=== PATIENT | male | born 1950 | race Caucasian/White ===

== ENCOUNTER 2019-02-17 12:46 | Inpatient (IN) | payer OTHER ==
[~2019-02-17] VITALS: Ht 179.1 cm; Wt 86.9 kg
[2019-02-28 15:11] VITALS: BP 128/63
[2019-02-28 15:24] LABS: APPEARANCE,URINE Clear (CLEAR); BILIRUBIN,URINE Negative (NEGATIVE); COLOR,URINE Yellow (YELLOW); GLUCOSE, URINE (UA) Negative (NEGATIVE); KETONES,URINE Negative (NEGATIVE); LEUKOCYTE ESTERASE ,URINE Negative (NEGATIVE); NITRATE,URINE Negative (NEGATIVE); OCCULT BLOOD,URINE Negative (NEGATIVE); PH,URINE 6.5 (5.0-8.0); PROTEIN,URINE Negative (NEGATIVE)
[2019-02-28] MEDS ORDERED: SERT100T12 PO (16:47)
[2019-02-28] MEDS ORDERED: ATOR40TA71 PO (16:47)
[2019-02-28] MEDS ORDERED: POTA10TA19 PO (16:47)
[2019-02-28] MEDS ORDERED: ALEVE PO (16:47)
[2019-03-01] VITALS (24 sets, daily range): BP systolic 128–153; BP diastolic 58–78
[2019-03-01] MEDS ORDERED: METOCLOPRAMIDE 10 MG/2 ML VIAL ONE (08:23)
[2019-03-01] MEDS ORDERED: ACETAMINOPHEN EXTRA STRENGTH 500 MG TABLET ONE (08:23)
[2019-03-01] MEDS ORDERED: KETOROLAC TROMETHAMINE 15MG/ML ONE (08:24)
[2019-03-01] MEDS ORDERED: CELECOXIB 200 MG CAP ONE (08:24)
[2019-03-01] MEDS ORDERED: OXYCODONE HCL 10 MG TAB.SR.12H PO ONE (08:24)
[2019-03-01] MEDS ORDERED: LACTATED RINGERS 1000ML 1,000 ML IV ONE (08:26)
[2019-03-01] MEDS ORDERED: GLYCOPYRROLATE 1 MG/5 ML SYRINGE ONE (08:54)
[2019-03-01] MEDS ORDERED: PROPOFOL 10 MG/ML 20ML VIAL IV ONE (08:55)
[2019-03-01] MEDS ORDERED: NEOSTIGMINE 5MG/5ML SYR IV ONE (08:55)
[2019-03-01] MEDS ORDERED: MIDAZOLAM HCL 1 MG/ML 2ML VIAL ONE (08:55)
[2019-03-01] MEDS ORDERED: FENTANYL CITRATE PF 50 MCG/1 ML 2ML VIAL ONE (08:55)
[2019-03-01] MEDS ORDERED: ROCURONIUM 10MG/1ML SYR 10 MG/ML ML ONE ×2 (08:55→11:11)
[2019-03-01] MEDS ORDERED: LIDOCAINE PF 2% 5ML ABBOJECT ONE (08:57)
[2019-03-01] MEDS ORDERED: CEFAZOLIN SODIUM 1 GM VIAL ONE (09:07)
[2019-03-01] MEDS: CEFAZOLIN SODIUM 1 GM VIAL ONE ×2 (09:29→14:00)
[2019-03-01] MEDS ORDERED: ROPIVACAINE 0.5% 5MG/ML 30ML IJ ONE (09:30)
[2019-03-01] MEDS: TRANEXAMIC ACID 1000MG/10ML IV ONE ×2 (10:10→14:30)
[2019-03-01] MEDS ORDERED: EPHEDRINE SULFATE 50 MG/ML AMPULE ONE (10:37)
[2019-03-01] MEDS ORDERED: DEXAMETHASONE SOD PHOSPHATE 10MG/ML 1ML VIAL ONE (10:48)
[2019-03-01] MEDS ORDERED: CALCIUM CARBONATE 500 MG TABLET PO PRN (14:15)
[2019-03-01] MEDS ORDERED: FE FUMARATE/FA/MV, MIN COMB#15 1 TAB PO PRN (14:15)
[2019-03-01] MEDS ORDERED: TEMAZEPAM 15 MG CAPSULE PO PRN (14:15)
[2019-03-01] MEDS ORDERED: POTASSIUM CHLORIDE 20 MEQ ERTAB PO PRN (14:15)
[2019-03-01] MEDS ORDERED: POTASSIUM CHLORIDE 10% ELIXIR 20 MEQ/15 ML UDCUP PO PRN (14:15)
[2019-03-01] MEDS ORDERED: POTASSIUM CHLORIDE 20MEQ/100ML 100 ML IV PRN (14:15)
[2019-03-01] MEDS ORDERED: TRAMADOL HCL 50 MG TABLET PO PRN (14:15)
[2019-03-01] MEDS ORDERED: ONDANSETRON HCL 4 MG/2 ML VIAL IVP PRN (14:15)
[2019-03-01] MEDS: ACETAMINOPHEN EXTRA STRENGTH 500 MG TABLET PO SCH ×2 (14:15→20:23)
[2019-03-01] MEDS ORDERED: DiphenhydrAMINE HCL 50 MG/ML VIAL IVP PRN (14:15)
[2019-03-01] MEDS ORDERED: OXYCODONE HCL 5 MG TAB PO PRN (14:15)
[2019-03-01] MEDS ORDERED: LIDOCAINE HCL-MPF 1% 2ML VIAL IVP PRN (14:15)
[2019-03-01] MEDS: SODIUM CHLORIDE 0.9% 1000ML 1,000 ML IV SCH (15:20)
--- NOTE | 2019-03-01 15:20 | NUR ---
REC'D PT TO ROOM 431 AWAKE, ALERT, IN STABLE CONDITION. S/P LEFT REVERSE TOTAL SHOULDER, DRESSING CLEAN, DRY, AND INTACT. HEMOVAC IN PLACE. SLING IN PLACE. ARRIVED TO ROOM SHORTLY AFTER. CALL SCHULER AND BEDSIDE TABLE WITHIN PT'S EASY REACH.
--- NOTE | 2019-03-01 16:05 | NUR ---
DCP CM met with pt discussed dc plans. Pt is independent prior to surgery, lives at home with spouse. denies any equipments. Pt feels safe to go back home, still drives, spouse able to assist with transportation and needs as necessary. Pt agreeable to home w/HH through [facility], PANDA signed for [facility] assigned Home Health. DC plan to home w/HH. CM to cont to follow up. Addendum: 03/01/19 at 1606 by DANIA SANTOYO LVN CM Amended: Links added.
[2019-03-01] MEDS ORDERED: ACET-66 PO (16:28)
--- NOTE | 2019-03-01 17:06 | NUR ---
CM Note: [facility] Spoke to Sameera Sal, received clinicals, will work on pt. Pt pending approval and assigned home health. Primary nurse aware. CM to cont to follow up.
[2019-03-01] MEDS: CEFAZOLIN SODIUM 1 GM VIAL IVP SCH (18:35)
[2019-03-01] MEDS: PREGABALIN 25 MG CAP PO SCH (20:21)
[2019-03-01] MEDS: ASPIRIN 325 MG TABLET PO SCH (20:21)
[2019-03-01] MEDS: SERTRALINE HCL 50 MG TABLET PO SCH (20:22)
[2019-03-01] MEDS: POTASSIUM CHLORIDE 10 MEQ/TAB.SA PO SCH (20:22)
[2019-03-01] MEDS: ATORVASTATIN CALCIUM 20 MG TABLET PO SCH (20:23)
[2019-03-01] MEDS: CELECOXIB 200 MG CAP PO SCH (20:23)
[2019-03-01] MEDS: FAMOTIDINE 20MG TAB 20 MG TAB PO SCH (20:23)
[2019-03-01] MEDS ORDERED: SERTRALINE HCL PO SCH (21:00)
[2019-03-01] MEDS ORDERED: POTASSIUM CITRATE PO SCH (21:00)
[2019-03-01] MEDS ORDERED: ATORVASTATIN CALCIUM PO SCH (21:00)
[2019-03-01] MEDS: KETOROLAC TROMETHAMINE 15MG/ML IV PRN (22:09)
[2019-03-02] MEDS: SODIUM CHLORIDE 0.9% 1000ML 1,000 ML IV SCH ×2 (00:04→10:04)
[2019-03-02] MEDS: OXYCODONE HCL 5 MG TAB PO PRN ×3 (00:56→20:12)
[2019-03-02] MEDS: CEFAZOLIN SODIUM 1 GM VIAL IVP SCH (03:38)
[2019-03-02] MEDS: KETOROLAC TROMETHAMINE 15MG/ML IV PRN (03:44)
[2019-03-02] MEDS: ACETAMINOPHEN EXTRA STRENGTH 500 MG TABLET PO SCH ×3 (03:44→22:34)
[2019-03-02 04:00] VITALS: BP_SYST 135; BP_SYST 140; BP_DIAS 66; BP_DIAS 68
[2019-03-02 05:40] LABS: HEMATOCRIT 34.5 % (42-54); MEAN CORPUSCULAR HEMOGLOBIN 31.9 pg (27.0-33.0); MEAN CORPUSCULAR HGB CONC 33.9 g/dL (32.0-36.0); MEAN CORPUSCULAR VOLUME 94.2 fL (79-99); PLATELET COUNT (AUTO) 178 K/uL (130-400); RED BLOOD CELL COUNT(AUTO) 3.66 MIL/uL (4.50-6.20); RED CELL DISTRIBUTION WIDTH 12.6 % (11.0-15.5); WHITE BLOOD COUNT (AUTO) 7.5 K/uL (4.8-10.8)
[2019-03-02 05:50] LABS: CREATININE 1.2 mg/dL (0.5-1.5); POTASSIUM 4.5 mmol/L (3.5-5.1)
[2019-03-02 07:55] VITALS: BP 114/59
[2019-03-02] MEDS: ASPIRIN 325 MG TABLET PO SCH ×2 (08:27→20:09)
[2019-03-02] MEDS: CELECOXIB 200 MG CAP PO SCH ×2 (08:27→20:10)
[2019-03-02] MEDS: FAMOTIDINE 20MG TAB 20 MG TAB PO SCH ×2 (08:27→20:10)
[2019-03-02] MEDS: PREGABALIN 25 MG CAP PO SCH ×2 (08:27→20:15)
[2019-03-02] MEDS: POLYETHYLENE GLYCOL 3350 17 GM POWD.PACK PO SCH (08:28)
[2019-03-02] MEDS: POTASSIUM CHLORIDE 10 MEQ/TAB.SA PO SCH ×2 (08:28→20:11)
[2019-03-02 11:17] VITALS: BP 107/52
--- NOTE | 2019-03-02 13:27 | NUR ---
CM Note: [facility] Spoke to Sameera david/[facility], pt has approval for [facility]. Primary nurse mick [place]. Pt safe to dc to home via private car once cleared. CM to cont to follow up.
[2019-03-02 19:09] VITALS: BP 140/60
[2019-03-02] MEDS: ATORVASTATIN CALCIUM 20 MG TABLET PO SCH (20:10)
[2019-03-02] MEDS: SERTRALINE HCL 50 MG TABLET PO SCH (20:11)
[2019-03-02 23:18] VITALS: BP 106/60
[2019-03-03 03:35] VITALS: BP 116/59
[2019-03-03] MEDS: ACETAMINOPHEN EXTRA STRENGTH 500 MG TABLET PO SCH (06:56)
[2019-03-03] MEDS ORDERED: HYDR-4457 PO (07:48)
[2019-03-03 08:00] VITALS: BP 131/60
[2019-03-03] MEDS: PREGABALIN 25 MG CAP PO SCH (08:33)
[2019-03-03] MEDS: ASPIRIN 325 MG TABLET PO SCH (08:33)
[2019-03-03] MEDS: POLYETHYLENE GLYCOL 3350 17 GM POWD.PACK PO SCH (08:34)
[2019-03-03] MEDS: POTASSIUM CHLORIDE 10 MEQ/TAB.SA PO SCH (08:34)
[2019-03-03] MEDS: FAMOTIDINE 20MG TAB 20 MG TAB PO SCH (08:34)
[2019-03-03] MEDS: CELECOXIB 200 MG CAP PO SCH (08:34)
[2019-03-03 11:00] VITALS: BP 143/65
--- NOTE | 2019-03-03 12:15 | NUR ---
DRESSING CHANGE DRESSING CHANGE AND HV DRAIN REMOVED, NO RESISTANCE NOTED, INCISION WITH DERMABOND CLEAN, NO REDNESS OR DRAINAGE NOTED TO SITE, CLEANSED AREA WITH BETADINE AND APPLIED NON ADHESIVE DRESSING COVERED WITH OPSITE DRESSING, TOLERATED WELL.
--- NOTE | 2019-03-03 13:35 | NUR ---
DISCHARGE DISCHARGE TEACHING DONE WITH PATIENT AND FAMILY USING TEACHBACK METHOD, VERALIZED UNDERSTANDING. NO NOTED SOB OR DISTRESS. NEW MEDICATION ADMINISTRATION TEACHING DONE WITH PATIENT, VERBALIZED UNDERSTANDING. PT AWARE OF NEED TO ATTEND DR. MOLINA APPOINTMENT. DRESSING TO SHOULDER DRY AND INTACT. DRESSING CHANGED PER DR. MOLINA, INCISION IS DRY AND INTACT. DRESSING TEACHING DONE WITH PATIENT, VERBALIZED UNDERSTANDING. IV REMOVED, CATH TIP INTACT. PENDING TO BE TRANSFERRED OUT VIA PRIVATE VEHICLE. REPORT CALLED TO HOME HEALTH.
[2019-03-04] MEDS ORDERED: BISACODYL 10 MG SUPP.RECT RC PRN (14:15)
== END 2019-03-03 13:58 | disposition home health service (06) | DRG 483 ==
LOC: EDSTATUS 15:30 → DAHIP 03-01 06:40 → 4AH 03-01 14:08
PROVIDERS: ADMIT Orthopaedic Surgery; ATTEND Orthopaedic Surgery
PROC: 0RRK00Z Replacement of Left Shoulder Joint with Reverse Ball and Socket Synthetic Substitute, Open Approach (ICD-10-PCS; principal; 2019-03-01 10:03)
PROC: 3E0T3BZ Introduction of Anesthetic Agent into Peripheral Nerves and Plexi, Percutaneous Approach (ICD-10-PCS; 2019-03-01 10:03)
DX: M75.102 Unspecified rotator cuff tear or rupture of left shoulder, not specified as traumatic (principal); E78.5 Hyperlipidemia, unspecified; I10 Essential (primary) hypertension; F41.9 Anxiety disorder, unspecified; G89.29 Other chronic pain; M47.819 Spondylosis without myelopathy or radiculopathy, site unspecified; M12.812 Other specific arthropathies, not elsewhere classified, left shoulder; Z90.49 Acquired absence of other specified parts of digestive tract; Z82.49 Family history of ischemic heart disease and other diseases of the circulatory system; Z82.3 Family history of stroke; Z85.828 Personal history of other malignant neoplasm of skin; Z79.899 Other long term (current) drug therapy
CPT/HCPCS: 36415; 73020; 80048; 81003; 85027; 87641; 88304; 88311; 96374; 96375; A4218; A4565; G0378; J0690; J1100; J1885; J2001; J2250; J2704; J2710; J2765; J2795; J3010; J3490; J7030; J7120

== ENCOUNTER 2025-07-03 12:55 | Emergency (ER) | payer OTHER, MEDICARE ==
[~2025-07-03] VITALS: Ht 180.3 cm; Wt 70.3 kg
[~2025-07-03 12:55] MED LIST: ACET-66 PO; ATOR40TA71 PO; HYDR-4457 PO; POTA-163 PO; SERT-440 PO
--- NOTE | 2025-07-03 13:22 | EKG ---
[facility] Test Date: 2025-07-03 Test Time: 13:16:04 Pat Name: ANN LOAIZA Department: ED Room: Gender: M Shaft Headman: [id number] : 1950 Requested By: NAIMA PAULINO Order Number: [id number] Reading MD: Donna Ott Measurements Intervals [place] Rate: 61 P: 75 SC: 167 QRS: -27 QRSD: 100 T: 61 QT: 426 QTc: 429 Interpretive Statements Sinus rhythm No previous ECG available for comparison Electronically Signed On 07-06-2025 08:34:09 CDT by Donna Ott Please click the below link to view image of tracing.
[2025-07-03 13:36] LABS: IMMATURE GRANULOCYTE ABSOLUTE 0.01 K/uL (0-1); NUCLEATED RED BLOOD CELLS 0.0 % (0.0-0.19); PLATELET COUNT (AUTO) 197 K/uL (130-400); RED BLOOD CELL COUNT(AUTO) 4.45 MIL/uL (4.50-6.20); RED CELL DISTRIBUTION WIDTH 12.4 % (11.0-15.5); WHITE BLOOD COUNT (AUTO) 4.3 K/uL (4.8-10.8)
[2025-07-03 13:55] LABS: CREATINE KINASE, TOTAL 124.0 U/L (21-232); CREATININE 1.1 mg/dL (0.5-1.3); GLOMERULAR FILTR. RATE CALC 70.0 mL/min (>90); GLUCOSE,RANDOM 122.0 mg/dL (70-105); SODIUM SERUM 139.0 mmol/L (136-145); UREA NITROGEN, BLOOD 25.0 mg/dL (7-18)
[2025-07-03] MEDS: LACTATED RINGERS 1000ML 1,000 ML IV ONE (15:28)
--- NOTE | 2025-07-03 15:31 | ERN ---
General Chief Complaint: Headache Stated Complaint: HEADACHE Time Seen by MD: 15:32 History of Present Illness Initial Comments This is 75-year-old male who presented to ED with chief complaints of headache. Patient says that he took 1 tablet of Viagra. He started sweating, felt dizzy, and started having headache. He denies chest pain, palpitation, nausea, vomiting, fever. Allergies: Coded Allergies: No Known Allergies (Unverified Allergy, Unknown, 02/28/19) Home Meds Active Scripts Hydrocodone/Acetaminophen ([place] 5-325 Tablet) 1 Each Tablet, 1-2 EACH PO Q6HPRN PRN for PAIN, #60 TAB Prov:FAITH MOLINA MD 03/03/19 Reported Medications Acetaminophen (Acetaminophen) 500 Mg Tablet, 2 TAB PO AD PRN for PAIN LEVEL 1 TO 5, TAB 03/01/19 Sertraline HCl (Sertraline HCl) 100 Mg Tablet, 1.5 TAB PO HS, TAB 02/28/19 Potassium Citrate (Potassium Citrate) 10 Meq Tablet.er, 2 TAB PO BID, TAB 02/28/19 Atorvastatin Calcium (Atorvastatin Calcium) 40 Mg Tablet, 0.5 TAB PO HS, TAB 02/28/19 Past Medical History Past Medical History: High Cholesterol Past Surgical History: Other Surgical History Other: NECK Physical Exam General Appearance: (+) no apparent distress; (-) apparent distress, (-) mild distress, (-) moderate distress, (-) severe distress, (-) thin, (-) obese, (-) combative, (-) cachetic, (-) anxious, (-) other documentation Orientation: (+) alert, (+) oriented x 3; (-) disoriented, (-) other documentation Head/Face Trauma: No Respiratory: (+) lungs clear, (+) well ventilated Heart: (+) regular Results Laboratory and Microbiology Lab and Micro Result Laboratory Tests Test 07/03/25 13:29 White Blood Count 4.3 K/uL (4.8-10.8) L Red Blood Count 4.45 MIL/uL (4.50-6.20) L Hemoglobin 14.1 g/dL (14.0-18.0) Hematocrit 40.7 % (42-54) L Mean Corpuscular Volume 91.5 fL (79-99) Mean Corpuscular Hemoglobin 31.7 pg (27.0-33.0) Mean Corpuscular Hemoglobin Concent 34.6 g/dL (32.0-36.0) Red Cell Distribution Width 12.4 % (11.0-15.5) Platelet Count 197 K/uL (130-400) Mean Platelet Volume 9.2 fL (7.5-10.5) Immature Granulocyte % (Auto) 0.2 % (0-1) Neutrophils (%) (Auto) 78.4 % (40.0-77.0) H Lymphocytes (%) (Auto) 14.4 % (21.0-51.0) L Monocytes (%) (Auto) 5.9 % (3.0-13.0) Eosinophils (%) (Auto) 0.9 % (0.0-8.0) Basophils (%) (Auto) 0.2 % (0.0-5.0) Neutrophils # (Auto) 3.3 K/uL (1.8-7.7) Lymphocytes # (Auto) 0.6 K/uL (1.0-4.8) L Monocytes # (Auto) 0.3 K/uL (0.1-1.0) Eosinophils # (Auto) 0.04 K/uL (0.00-0.70) Basophils # (Auto) 0.01 K/uL (0.00-0.20) Absolute Immature Granulocyte (auto 0.01 K/uL (0-1) Nucleated Red Blood Cells 0.0 % (0.0-0.19) Sodium Level 139 mmol/L (136-145) Potassium Level 4.3 mmol/L (3.5-5.1) Chloride Level 102 mmol/L (101-111) Carbon Dioxide Level 32 mmol/L (21-32) Blood Urea Nitrogen 25 mg/dL (7-18) H Creatinine 1.1 mg/dL (0.5-1.3) Glomerular Filtration Rate Calc 70 mL/min (>90) Random Glucose 122 mg/dL (70-105) H Total Calcium 9.3 mg/dL (8.5-10.1) Total Creatine Kinase 124 U/L (21-232) Troponin I High Sensitivity 6.1 ng/L (4-75) EKG/XRAY/US/CT/MRI EKG Comment : 1950 DATE: 07/03/2025 TIME: 13: 16 SINUS RHYTHM STEMI: NO NM 167 QRSD 100 QT 426 QTcB 429 MDM MDM: Patient is 75-year-old male who presented to ED with dizziness and headache. Patient took a pill of Viagra and started feeling dizzy, severe headaches. We ordered CBC, BMP, ECG, cardiac panel. ECG is negative for ST-elevation [place], troponin I levels are unremarkable. We ordered 1000 mL lactated Ringer's solution, but the patient refused to take it. Patient says that he is feeling fine now and wants to leave. He is hemodynamically stable and we will discharge him home. ED Course Orders Procedure Category Date Status Time Cardiac Panel LAB 07/03/25 Complete 13:09 Cbc With Differential LAB 07/03/25 Complete 13:09 Basic Metabolic Panel LAB 07/03/25 Complete 13:09 Lactated Ringers PHA 07/03/25 Complete 1000ml (Lactated 13:30 12 Lead Ekg Tracing- EKG 07/03/25 Complete Technical 13:09 Current Medications Medications (Trade) Dose Ordered Sig/Indy Route PRN Reason Start Time Stop Time Status Last Admin Dose Admin Lactated Ringer's 1,000 ml @ 0 mls/hr ONCE ONCE IV 07/03/25 13:30 07/03/25 13:31 DC Vital Signs Date Time Temp Pulse Resp B/P (MAP) Pulse Ox O2 Delivery O2 Flow Rate FiO2 07/03/25 15:40 98.1 60 16 140/62 98 Room Air* 0 21 07/03/25 12:56 96.4 61 16 142/65 96 Room Air DX & DISP Disposition: Discharge Departure Impression: Primary Impression: Medication adverse effect Condition: Stable Additional Instructions: You are likely having a medication side effect. You can use [id number] p ain medication for headaches. Seek immediate medical attention if you experience severe headache, chest pain, shortness of breath, arm pain, sudden vision changes, slurred speech and confusion. Follow up with your PCP in 3-5 days. Referrals: KAREN MONIQUE MD (PCP) ATTESTATION BY PHYSICIAN I have seen and examined the patient. I reviewed the documentation, medical decision making, and treatment plan as noted by the resident provider above. I agree with the findings and plan of care. NAIMA PAULINO ADIL SHAH QUADRI MD Jul 03, 2025 15:31 NAIMA PAULINO DO Jul 03, 2025 17:38
[2025-07-03 15:40] VITALS: BP 140/62; PULSE 60; RESP 16; TEMP 98; O2SAT 98
== END 2025-07-03 15:52 | disposition home or self-care (01) ==
LOC: EDH 12:55
DX: R51.9 Headache, unspecified (principal); R42 Dizziness and giddiness; E78.00 Pure hypercholesterolemia, unspecified; T46.7X5A Adverse effect of peripheral vasodilators, initial encounter; Y92.89 Other specified places as the place of occurrence of the external cause
CPT/HCPCS: 36415; 80048; 82550; 84484; 85025; 93005; 99284